=== PATIENT | female | born 1945 | race Caucasian/White ===

== ENCOUNTER → 2016-03-06 | Day surgery (SDC) | payer MEDICARE ==
[~2016-03-06] VITALS: Ht 157.5 cm; Wt 69.2 kg
[~2016-03-06] MED LIST: *morphine SULFATE 8 MG/ML PERIprocedure ONLY ONE; ASPI81CH CHEW; BENA25TA3 PO; DO NOT ADM ANY ANTICOAGULANT DRUGS XX PRN; INSULIN HUMAN REGULAR 1,000 UNITS/10 ML VIAL SQ PRN; KETOROLAC TROMETHAMINE 60 MG/2 ML (IM) VIAL IM ONE; LACTATED RINGER'S 1000 ML IV SCH; LIDOCAINE 1%/EPINEPHrine 1:100,000 SOLN 20 ML VIAL ONE; METO25TA3 PO; METOPROLOL TARTRATE 25 MG TAB PO PRN; ONDANSETRON HCL 4 MG/2 ML VIAL IV PUSH ONE; PROPOFOL 200 MG/20 ML AMP IV ONE; SODIUM CHLORID 0.9% 500 ML IV SCH; fentaNYL CITRATE 250 MCG/5 ML AMP ONE
[2016-03-06 11:05] VITALS: BP 119/75; PULSE 82; RESP 16; TEMP 98.8; O2SAT 98
[2016-03-06 16:00] VITALS: BP 121/69; PULSE 80; RESP 16; TEMP 97.1; O2SAT 95
--- NOTE | 2016-03-06 16:16 | MP ---
cc: MAYKEL URBINA KELLY L. MD ORTEGA, GREGORY M.D. RAZETTI, ALBERT DATE OF SURGERY: 03/06/2016 PREOPERATIVE DIAGNOSIS: 1. Thickened endometrial stripe. 2. Cervical stenosis. POSTOPERATIVE DIAGNOSIS 1. Thickened endometrial stripe. 2. Cervical stenosis. PROCEDURE Examination under anesthesia, fractional dilation and curettage (with alleviation of cervical scar tissue) and cervix biopsies. SURGEON Melissa Perez MD. RUSSIAN LANGUAGE PROFESSOR Payne sales service assistant. ANESTHESIA: Laryngeal mask anesthesia ESTIMATED BLOOD LOSS 20 cc INDICATIONS The patient is a 70 year-old female found on exam and imaging to have a thickened endometrial stripe. Office biopsy was attempted but cervical stenosis precluded ability to evaluate the endometrium in the office setting. She was seen and counseled by us in [employer]PER[employer] oncology, presented with options. She presents now in favor of examination under anesthesia, attempts to alleviate cervical scar tissue, performed dilation and curettage. FINDINGS The uterus was retroverted approximately 8 cm in greatest dimension. There was no overt adnexal mass or nodularity. The cervix was indeed scarred closed and the scarring was at the level near the internal cervical os. There was approximately 20 cc of old and new blood that came from the uterus during separation of the scar tissue and cervical dilation. The cervix was prominent on the anterior portion. There was an extra fold of tissue at the 12 o'clock position, possibly a Nabothian cyst, less likely neoplastic change. The uterus and cervix were mobile. No parametrial nodularity or extension. The amount of tissue obtained on endocervical curetting was scant. The amount of tissue obtained on endometrial curetting was scant. At the completion of the procedure all surfaces of the endometrium were gritty circumferentially. No overt explanation for thickened endometrial stripe was determined from the procedure today other than the possibility of old blood trapped within the endometrium given the appearance of a thickened endometrial stripe. PROCEDURE The patient was taken to the operating room placed in dorsal lithotomy position. After laryngeal mask anesthesia was administered time-out was undertaken. The patient was identified by sight, recognition, and hospital ID bracelet and the proposed procedure was reviewed and confirmed. Exam under anesthesia was performed with findings as described above. She was prepped and draped in sterile fashion. In and out drainage of the bladder. Cervix was grasped. A lacrimal probe was used which initially passed easily through the ectocervical tissue but stenosis was encountered, perhaps 1 cm proximal to the ectocervix and with manipulation from the lacrimal probe, and a 15 scalpel blade, the scar tissue was broken up which allowed passage of gradually increasing dilators. The uterus sounded to 8 cm retroverted and as noted above there was a scant amount of tissue circumferentially and all surfaces were gritty. There was no overt mass or polyp detected on curetting and the tissue removed was scant. Old blood and new blood was drained through the cervical os upon cervical dilation. Endocervical curetting was performed. Circumferentially multiple passes. Scant tissue obtained as a single endocervical curetting specimen. Endometrium was now curetted. Circumferentially multiple passes. Scant amount of tissue was combined as endometrial curettings and findings as described above. Biopsy was taken at 12 o'clock position of the ectocervix. Sites were rendered hemostatic with topical Monsel's solution. After the tenaculum was removed, all sites were completely hemostatic. There were no remaining foreign objects in the vagina. Preliminary and final counts were correct. She was returned to dorsal supine position and was pending reversal of anesthesia when I left the operating room to precede her to the Post-Anesthesia Care Unit and to speak with family member waiting in the family waiting area. MD NGUYEN Hernandez/KESHIA /1:48 PM /3:11 PM
== END | disposition home or self-care (01) ==
LOC: HSDC 10:28
PROVIDERS: ATTEND Obstetrics & Gynecology Gynecologic Oncology
DX: N88.2 Stricture and stenosis of cervix uteri (principal); N72 Inflammatory disease of cervix uteri; N84.0 Polyp of corpus uteri; I48.91 Unspecified atrial fibrillation
CPT/HCPCS: 00940; 58120; 86850; 86900; 86901; 88305; J1885; J2270; J2405; J3010; J7120

== ENCOUNTER → 2017-05-30 | Outpatient (CLI) | payer MEDICARE ==
[~2017-05-30] MED LIST changes: -*morphine SULFATE 8 MG/ML PERIprocedure ONLY ONE; +ALPR.5 PO; +ASPI-516 CHEW; -ASPI81CH CHEW; -DO NOT ADM ANY ANTICOAGULANT DRUGS XX PRN; +ECASA81 PO; -INSULIN HUMAN REGULAR 1,000 UNITS/10 ML VIAL SQ PRN; -KETOROLAC TROMETHAMINE 60 MG/2 ML (IM) VIAL IM ONE; -LACTATED RINGER'S 1000 ML IV SCH; -LIDOCAINE 1%/EPINEPHrine 1:100,000 SOLN 20 ML VIAL ONE; +METO1TAB9 PO; -METOPROLOL TARTRATE 25 MG TAB PO PRN; -ONDANSETRON HCL 4 MG/2 ML VIAL IV PUSH ONE; -PROPOFOL 200 MG/20 ML AMP IV ONE; -SODIUM CHLORID 0.9% 500 ML IV SCH; -fentaNYL CITRATE 250 MCG/5 ML AMP ONE
--- NOTE | 2017-05-30 16:01 | RADRPT ---
EXAM DATE/TIME: 05/30/2017 15:54 [facility] COMPARISON: No previous studies available for comparison. INDICATIONS : Evaluate for pneumonia, pneumothorax, or communicable disease. Pre op hysterectomy. MEDICAL HISTORY : None. SURGICAL HISTORY : Pacemaker. ENCOUNTER: Initial ACUITY: 1 day PAIN SCORE: 0/10 LOCATION: Bilateral chest FINDINGS: The cardiac silhouette is normal in transverse diameter. The lungs are free of acute parenchymal opac ity. No effusions are identified. A bipolar pacemaker is in place via a left sided approach. Mitral c lip is present. CONCLUSION: No acute cardiopulmonary disease. Yves Thomas MD on May 30, 2017 at 15:56 Board Certified Radiologist. This report was verified electronically.
[2017-05-30 16:47] LABS: AUTOMATED NEUTROPHIL # 3.5 TH/MM3 (1.8-7.7); BASOPHIL % 0.9 % (0.0-2.0); EOSINOPHIL # 0.2 TH/MM3 (0-0.4); EOSINOPHIL % 3.6 % (0.0-4.0); HEMATOCRIT 40.9 % (35.0-46.0); HEMOGLOBIN 13.8 GM/DL (11.6-15.3); LYMPHOCYTE # 1.4 TH/MM3 (1.0-4.8); MEAN CELL VOLUME 94.9 FL (80.0-100.0); MEAN CORPUSCULAR HGB CONC 33.8 % (32.0-36.0); MEAN PLATELET VOLUME 8.1 FL (7.0-11.0); MONO % 10.8 % (0.0-8.0); MONOCYTE # 0.6 TH/MM3 (0-0.9); NEUT % 60.7 % (16.0-70.0); PLATELET COUNT 297 TH/MM3 (150-450); RED BLOOD COUNT 4.31 MIL/MM3 (4.00-5.30); RED CELL DISTRIBUTION WIDTH 13.1 % (11.6-17.2); WHITE BLOOD COUNT 5.7 TH/MM3 (4.0-11.0)
[2017-05-30 16:51] LABS: PROTHROMBIN TIME - PATIENT 10.2 SEC (9.8-11.6)
[2017-05-30 17:02] LABS: ALBUMIN 3.6 GM/DL (3.4-5.0); ALT (GPT) 33 U/L (10-53); AST (GOT) 23 U/L (15-37); BICARBONATE 29.2 MEQ/L (21.0-32.0); BLOOD UREA NITROGEN 17 MG/DL (7-18); CALCIUM 8.8 MG/DL (8.5-10.1); CHLORIDE 108 MEQ/L (98-107); CREATININE 0.72 MG/DL (0.50-1.00); GLOMERULAR FILTRATION RATE 79 ML/MIN (>89); GLUCOSE,FASTING 81 MG/DL (74-99); SODIUM (NA) 142 MEQ/L (136-145)
[2017-05-30 17:04] LABS: ALKALINE PHOSPHATASE 79 U/L (45-117); TOTAL BILIRUBIN ADULT 0.4 MG/DL (0.2-1.0); TOTAL PROTEIN 7.3 GM/DL (6.4-8.2)
== END ==
LOC: CPRE 14:14
PROVIDERS: ATTEND Obstetrics & Gynecology Gynecologic Oncology
DX: Z01.812 Encounter for preprocedural laboratory examination (principal); Z01.811 Encounter for preprocedural respiratory examination; I48.3 Typical atrial flutter
CPT/HCPCS: 36415; 71046; 80053; 85025; 85610; 85730

== ENCOUNTER 2017-06-10 08:10 | Observation (INO) | payer MEDICARE ==
[~2017-06-10] VITALS: Ht 157.5 cm; Wt 72.5 kg
[~2017-06-10 08:10] MED LIST changes: -ASPI-516 CHEW; -BENA25TA3 PO; -METO25TA3 PO
[2017-06-10] MEDS ORDERED: HEPARIN SODIUM - SQ 10,000 UNITS/ML VIAL SQ SCH (08:45)
[2017-06-10] MEDS ORDERED: LACTATED RINGER'S 1000 ML IV PRN (08:45)
[2017-06-10] MEDS ORDERED: METOPROLOL TARTRATE 25 MG TAB PO PRN (08:45)
[2017-06-10] MEDS ORDERED: CHLORHEXIDINE GLUCONATE 2 % 1 PACK (2 CLOTHS) TOPICAL PRN (08:45)
[2017-06-10] MEDS ORDERED: POVIDONE IODINE 5% (ANTISEPSIS KIT) 4 APPLICATIONS EACH NARE PRN (08:45)
[2017-06-10] MEDS ORDERED: SODIUM CHLORID 0.9% 500 ML IV PRN (08:45)
[2017-06-10] MEDS ORDERED: SODIUM CHLORIDE FLUSH PRN IV FLUSH (08:45)
[2017-06-10] MEDS ORDERED: SODIUM CHLORIDE FLUSH BID IV FLUSH SCH (09:00)
[2017-06-10] MEDS ORDERED: ONDANSETRON HCL 4 MG/2 ML VIAL IV ONE (12:00)
[2017-06-10] MEDS ORDERED: PROPOFOL 200 MG/20 ML AMP IV ONE (12:00)
[2017-06-10] MEDS ORDERED: DEXAMETHASONE SOD PHOS 4 MG/ML VIAL IV ONE (12:00)
[2017-06-10] MEDS ORDERED: LIDOCAINE HCL 1% PF 5 ML SYRINGE OTHER ONE (12:00)
[2017-06-10] MEDS ORDERED: ROCURONIUM INJ 50 MG/5 ML SYRINGE IV PUSH ONE (12:00)
[2017-06-10] MEDS ORDERED: VECURONIUM BROMIDE 20 MG VIAL IV ONE (12:00)
[2017-06-10] MEDS ORDERED: ACETAMINOPHEN 1000 MG/100 ML 100 ML IV ONE (12:58)
[2017-06-10] MEDS: ceFAZolin 1,000 MG/NS 100 ML IV SCH ×2 (13:24)
[2017-06-10] MEDS ORDERED: METHYLENE BLUE 10 MG/ML VIAL ONE (14:51)
[2017-06-10] MEDS ORDERED: LIDOCAINE 1%/EPINEPHrine 1:100,000 SOLN 30 ML VIAL ONE (14:51)
[2017-06-10] MEDS ORDERED: SUGAMMADEX SODIUM 200 MG/2 ML VIAL IV PUSH ONE (15:11)
[2017-06-10] MEDS ORDERED: SODIUM CHLORIDE 0.9% FLUSH 10 ML FLUSH IV FLUSH PRN (16:45)
[2017-06-10] MEDS ORDERED: diphenhydrAMINE HCL 25 MG CAP PO PRN (16:45)
[2017-06-10] MEDS ORDERED: traMADol HCL 50 MG TAB PO PRN (16:45)
[2017-06-10] MEDS ORDERED: ALPRAZolam 0.5 MG TAB PO PRN (16:45)
[2017-06-10] MEDS ORDERED: ONDANSETRON HCL 4 MG/2 ML VIAL IVP PRN (16:45)
[2017-06-10] MEDS ORDERED: DO NOT ADM ANY ANTICOAGULANT DRUGS PRN (16:47)
[2017-06-10] MEDS: KETOROLAC TROMETHAMINE 30 MG/ML (IVP) VIAL IVP SCH ×2 (17:25→23:29)
[2017-06-10] MEDS: D5-1/2 NS + KCL 20 MEQ INJ 1,000 ML IV SCH (17:45)
[2017-06-10] MEDS ORDERED: *ONDANSETRON 4 MG VIAL PERIprocedural Use ONLY ONE (18:29)
[2017-06-10 18:54] VITALS: BP 157/75; PULSE 85; RESP 18; TEMP 97.7; O2SAT 96
[2017-06-10 19:00] VITALS: BP 153/74; PULSE 75; PULSE 80; RESP 18; TEMP 97.9; O2SAT 93
[2017-06-10 20:00] VITALS: PULSE 80
[2017-06-10 21:00] VITALS: PULSE 80
[2017-06-10] MEDS: SODIUM CHLORIDE 0.9% FLUSH 10 ML FLUSH IV FLUSH SCH (21:00)
[2017-06-10 22:00] VITALS: PULSE 80
[2017-06-10 23:00] VITALS: BP 125/67; PULSE 76; PULSE 77; RESP 20; TEMP 98; O2SAT 92
[2017-06-11] VITALS (14 sets, daily range): BP systolic 125–157; BP diastolic 69–77; PULSE 68–84; RESP 16–20; TEMP 97.5–98.8; O2SAT 92–98
[2017-06-11] MEDS: D5-1/2 NS + KCL 20 MEQ INJ 1,000 ML IV SCH ×2 (03:36→12:44)
[2017-06-11 04:56] LABS: AUTOMATED NEUTROPHIL # 8.1 TH/MM3 (1.8-7.7); BASOPHIL % 0.1 % (0.0-2.0); HEMOGLOBIN 12.9 GM/DL (11.6-15.3); LYMPHOCYTE # 0.5 TH/MM3 (1.0-4.8); MEAN CELL VOLUME 94.7 FL (80.0-100.0); MEAN CORPUSCULAR HEMOGLOBIN 32.1 PG (27.0-34.0); MEAN CORPUSCULAR HGB CONC 33.9 % (32.0-36.0); MONO % 6.6 % (0.0-8.0); MONOCYTE # 0.6 TH/MM3 (0-0.9); NEUT % 88.3 % (16.0-70.0); PLATELET COUNT 234 TH/MM3 (150-450); RED BLOOD COUNT 4.01 MIL/MM3 (4.00-5.30); RED CELL DISTRIBUTION WIDTH 12.7 % (11.6-17.2); WHITE BLOOD COUNT 9.1 TH/MM3 (4.0-11.0)
[2017-06-11 05:17] LABS: BICARBONATE 22.7 MEQ/L (21.0-32.0); CALCIUM 7.6 MG/DL (8.5-10.1); CREATININE 0.8 MG/DL (0.50-1.00)
[2017-06-11] MEDS: KETOROLAC TROMETHAMINE 30 MG/ML (IVP) VIAL IVP SCH ×2 (05:49→10:28)
--- NOTE | 2017-06-11 06:38 | MP ---
cc: Melissa Perez MD, Greg MD Razetti,Stone CORTES DATE OF OPERATION: 06/10/2017 PREOPERATIVE DIAGNOSIS: 1. Thickened endometrial stripe. 2. History of breast cancer. POSTOPERATIVE DIAGNOSIS: 1. Thickened endometrial stripe. 2. History of breast cancer. PROCEDURE: Robotic-assisted laparoscopic hysterectomy and bilateral salpingo-oophorectomy. SURGEON: Melissa Perez MD CRACKER DOUGH MIXER: Skyler assistant professor of art. ANESTHESIA: General endotracheal anesthesia. ESTIMATED BLOOD LOSS: 100 mL. IV FLUIDS: 1500 mL. URINE OUTPUT: 125 mL. HISTORY: A 71-year-old female with imaging showing thickened endometrial stripe, previous cervical stenosis. She had a prior D and C that showed benign-appearing polyps. In recent weeks, she was admitted to the hospital with diverticulitis, had additional imaging. Imaging again showed a prominent endometrial stripe that appeared more prominent than before. She has had little in the way of postmenopausal bleeding. Nevertheless, with her history of prior breast cancer, the abnormality persisting worsening in the uterus, she was interested in definitive surgery and was counseled accordingly in our office and was in favor of hysterectomy. She was seen again in the preop holding where the findings are again reviewed. Plan of care discussed. Questions were answered. She expressed good understanding and wanted to move forward with surgery. FINDINGS: The uterus sounded to 8 cm, grossly appeared normal. Tubes and ovaries appeared normal. No adenopathy. No intraperitoneal implants. No other abnormality of significance to suggest malignancy. Noted are very significant diverticulum in the descending colon especially the sigmoid colon. No active diverticulitis and very minimum adhesions resulting from recent diverticulitis. The uterus once removed showed a large smooth benign appearing polyp approximately 4 cm arising from the endometrium. No evidence to suggest any myometrial invasion. Final pathology is pending. PROCEDURE: She was taken to the operating room, placed in dorsal lithotomy position after general endotracheal anesthesia was administered. Time-out was undertaken. She was identified by site recognition and hospital ID bracelet and the proposed procedure was reviewed and confirmed. She was carefully positioned in padded Juve stirrups. Her arms were padded and secured to the sides. She was further secured to the table with egg crate padding and tape in a cross chest over the shoulder fashion. All sites noted to be properly aligned with no malalignment or pressure points. She was prepped and draped in a sterile fashion, placed in lithotomy position. The cervix grasped. Uterine cavity sounded. Small VCare manipulator inserted and secured in the usual fashion. Johnson catheter placed in the bladder. She was returned to low lithotomy position. A change of sterile gloves was undertaken to confirm an orogastric tube was in the stomach on suction. With manual elevation of the abdominal wall under direct laparoscopic visualization, 5 mm cannula placed in the left upper quadrant and an atraumatic entry was confirmed. Carbon dioxide gas was insufflated. Under laparoscopic visualization, 12 mm cannula placed in the midline above the umbilicus, 8 mm cannula was placed in the right upper quadrant, left lateral quadrant and the original 5 mm exchanged for an 8 mm cannula. She was placed in steep Trendelenburg position. Peritoneal washings were obtained for cytology. The anatomy was surveyed with findings as described above. The small bowel was folded back on its mesenteric root. Three Ray-Alvino sponges placed in the peritoneal cavity. Robotic system brought into the operative field, attached in the usual fashion. Monopolar scissors fenestrated bipolar forceps and ProGrasp manipulators were placed in arms number 1,2 and 3 respectively and I took my place at the surgeon's console. The right round ligament, isolated, cauterized and transected. The anterior and posterior leafs of the broad ligament were opened. Right ureter was identified. Right infundibulopelvic ligament was isolated. It was dissected to the level of the pelvic brim as the intervening peritoneum was opened. The infundibulopelvic ligament was cauterized and transected. Posterior peritoneum opened along the right side of the uterus and cervix. Right vesicouterine peritoneum dissected off the lower uterine segment and cervix. Right uterine vessels were skeletonized, cauterized and transected as were the cardinal, paracervical and uterosacral ligaments thereby freeing the attachments along the right side of the uterus and cervix. Attention was directed toward the left side where the left round ligament was isolated, cauterized and transected. The anterior and posterior leafs of the broad ligament were opened. Left ureter was identified. The left infundibulopelvic ligament was isolated. The intervening peritoneum was opened. The infundibulopelvic ligament was cauterized at the level of the pelvic brim and transected. Posterior peritoneum opened along the left side of the uterus and cervix and the left vesicouterine peritoneum was dissected off the lower uterine segment and cervix. Left uterine vessels were skeletonized, cauterized and transected as were the cardinal, paracervical and uterosacral ligaments thereby freeing the attachments along the left side of the uterus and cervix. Circumferential colpotomy was performed the cervix from the upper vagina. Specimen was withdrawn transvaginally which included uterus, cervix, tubes and ovaries and a pneumo-occluder balloon was placed in the vagina to maintain pneumoperitoneum. Instruments 1 and 3 exchanged for needle drivers as a 0 Vicryl suture was introduced. The vaginal cuff was closed starting at the left corner full thickness closure incorporating the posterior peritoneum and edge of the uterosacral ligament tied the instrument tie. The closure was held on countertraction as a running continuous full thickness closure was carried across the vaginal apex to the contralateral corner where it was similarly fixed, tied and secured, the needle was cut and removed. The pelvis was thoroughly irrigated. Small bleeders were rendered hemostatic with bipolar cautery. The bladder was inspected. The bladder wall was intact. There was a nice margin between the edge of the bladder and the vaginal cuff suture line. Good peristalsis of ureters bilaterally. Pathology came back showing benign findings. It was felt that all reasonable surgical objectives had been completed. Hemostatic Deonna powder was placed across the vaginal cuff. The robotic instruments were removed. The robotic system was disengaged from the operative field. I the bedside under a sterile condition. Each of the 3 Ray-Alvino sponges that had been placed in the peritoneal cavity were each removed and inspected and noted to be removed in their entirety. There were no remaining foreign objects in the peritoneal cavity. Preliminary counts were correct. The remaining cannulas were withdrawn. Carbon dioxide gas was removed from the peritoneal cavity. 3-0 Vicryl subcutaneous, 3-0 Vicryl subcuticular and Steri-Strips were used to close these incisions. She was returned to dorsal lithotomy position. Pelvic exam confirmed the vaginal cuff was well supported. There were no vaginal lacerations. There was some superficial mucosal irritation near the introitus and the remaining Deonna hemostatic agent was placed there. All sites were hemostatic. There were no remaining foreign objects in the vagina and the final counts were correct. She was returned to dorsal supine position and was pending reversal of anesthesia, when I left the operating room to precede her to the Postanesthesia Care Unit. MD ANGELO Cuenca/ENOCH , 05:27 AM , 06:38 AM
[2017-06-11] MEDS ORDERED: TRAM50 PO (06:56)
--- NOTE | 2017-06-11 07:39 | MD ---
cc: Melissa Perez MD,Stone Rausch DATE OF DISCHARGE: PROCEDURE PERFORMED: On 06/10/2017, robotic-assisted laparoscopic hysterectomy, bilateral salpingo-oophorectomy. DIAGNOSIS: Endometrial polyp. HOSPITAL COURSE: She did well in early postoperative period, remained hemodynamically stable, tolerating oral intake. Johnson catheter removed, pending voiding. Ins and outs 3359/1925. LABORATORY STUDIES: H and H 12.9 and 38. BUN and creatinine 7 and 0.80. Glucose reportedly 425. This will need to be rechecked. PHYSICAL EXAMINATION: VITAL SIGNS: Temperature 98.8, pulse 74-78, blood pressure 125-153/67-75, O2 saturations while awake greater than or equal to 96%, while asleep greater than or equal to 92%. GENERAL: She is alert, oriented. CHEST: Respirations unlabored. Lungs clear. Mild rales at the bases. CARDIOVASCULAR: Regular rate and rhythm. ABDOMEN: Soft. Incisions clean and dry. GYNECOLOGIC: No bleeding. EXTREMITIES: Nontender. ASSESSMENT: Postoperative day #1, findings at the time of surgery, steps taken and preliminary pathology discussed and reviewed, activities and restrictions again discussed. PLAN: Clinically, she looks good and may be able to meet criteria for discharge to home today. It is uncertain the accuracy of the markedly elevated glucose. She has no known history of diabetes. It is possible blood draw could have been taken in the same arm were glucose IV fluids were being infused but nevertheless, this will be rechecked and reevaluated and attention to this issue if in fact it is accurate. Conversely, if she meets criteria for discharge to home, she is to contact our office to ensure she has a followup in 2 weeks. She is to resume prior medications. I will have a prescription for tramadol for pain. She is to contact our office should she have any questions or problems between now and the time and the time of scheduled followup. MD ANGELO Cuenca/AB , 07:02 AM , 07:39 AM
[2017-06-11] MEDS ORDERED: METOPROLOL SUCCINATE 50 MG EXTENDED RELEASE TAB PO SCH (09:00)
[2017-06-11] MEDS: SODIUM CHLORIDE 0.9% FLUSH 10 ML FLUSH IV FLUSH SCH (09:21)
[2017-06-11 11:10] LABS: BICARBONATE 26.2 MEQ/L (21.0-32.0); CALCIUM 8.7 MG/DL (8.5-10.1); CREATININE 0.66 MG/DL (0.50-1.00)
== END 2017-06-11 12:55 | disposition home or self-care (01) ==
LOC: HSDC 08:10 → HSDI 16:34 → HCPC 18:34 → HCIS 06-11 12:55 → HCPC 06-11 15:42 → UNDODISOB 06-11 16:06
PROVIDERS: ADMIT Obstetrics & Gynecology Gynecologic Oncology; ATTEND Obstetrics & Gynecology Gynecologic Oncology
DX: R91.8 Other nonspecific abnormal finding of lung field (principal); N84.0 Polyp of corpus uteri; Z85.3 Personal history of malignant neoplasm of breast; Z95.0 Presence of cardiac pacemaker
CPT/HCPCS: 00840; 58571; 80048; 82948; 85025; 86850; 86900; 86901; 88112; 88307; 88329; 94150; 96365; 96375; 96376; G0378; J0131; J0690; J1100; J1644; J1885; J2405; J3010; J3480; J7120; S2900; 88331; C1769